=== PATIENT | female | born 1985 | race Caucasian/White ===

== ENCOUNTER 2020-01-15 09:40 | Emergency (ER) | payer SELFPAY ==
--- NOTE | 2020-01-15 10:14 | RAD ---
XR Toe(s) Rt Min 2 View History: Injury Comparison: None. Findings: Age indeterminant fracture of the medial hallux sesamoid, limited without an oblique view. Mild soft tissue swelling along the distal phalanx great toe with concern for a nondisplaced sagittally oriented fracture from the tuft to the interphalangeal joint. Impression: 1. Age indeterminate medial hallux sesamoid fracture. 2. Soft tissue swelling of the great tear with concern for a nondisplaced sagittally oriented fractur e from the tuft to the interphalangeal joint. Repeat 3 views may be beneficial.
== END 2020-01-15 13:18 | disposition home or self-care (01) ==
LOC: NAV ERS 09:40
DX: S93.511A Sprain of interphalangeal joint of right great toe, initial encounter (principal); F90.9 Attention-deficit hyperactivity disorder, unspecified type; F17.210 Nicotine dependence, cigarettes, uncomplicated; Z79.899 Other long term (current) drug therapy; X58.XXXA Exposure to other specified factors, initial encounter